=== PATIENT | male | born 2005 | race African-American/Black ===

== ENCOUNTER 2024-12-28 19:03 | Emergency (ER) | payer SELFPAY ==
--- NOTE | ~2024-12-28 | CT_ITS ---
CLINICAL HISTORY: periumbilical pain, r o acute appy CT abdomen and pelvis with contrast Comparison: None provided Findings: No consolidation or effusion. The gallbladder and solid organs are within normal limits. No renal stones. No bowel obstruction, pneumoperitoneum, or pneumatosis. Pelvic contents unremarkable. Normal appendix. Bladder is decompressed. No acute fracture. IMPRESSION: No acute findings. Specifically, the appendix is unremarkable. This document has been electronically signed by: Cody Burnette DO on 12/28/2024 22:16:48
[2024-12-28 19:09] VITALS: BP 140/80; PULSE 69; RESP 18; TEMP 36.9; O2SAT 98; BMI 34.5
--- NOTE | 2024-12-28 19:09 | ED.ABDPAIN ---
HPI - Abdominal Pain General Chief Complaint: Abdominal Pain Stated Complaint: abd pain, headache vomiting Time Seen by Provider: 12/28/24 20:55 Source: patient and family Mode of arrival: ambulatory Limitations: no limitations History of Present Illness ED Provider: DR. Garay HPI narrative: 19-year-old male came in for evaluation of mid abdominal pain since yesterday pain has been constant wax and wane since it started last night, pain is associated with nausea, few episode of vomiting since yesterday, and 1 time nonbloody watery diarrhea, no fever, no chills, no sick contacts, no recent travel, no recent use of antibiotic, no exposure to bad food. No blood in the stool or in the vomit. Never had intra-abdominal surgery in the past, a passing flatus normally. Complains of headache since yesterday. Related Data Allergies Allergy/AdvReac Type Severity Reaction Status Date / Time No Known Allergies Allergy Verified 12/28/24 19:11 Review of Systems Review of Systems All other systems are reviewed and are negative Constitutional: Reports as per HPI and Reports no additional constitutional complaints Eyes: Reports as per HPI and Reports no additional eye complaints Reports system reviewed and no additional complaints, except as documented Cardiovascular: Reports as per HPI and Reports no additional cardiovascular complaints Respiratory: Reports as per HPI and Reports no additional respiratory complaints Gastrointestinal: Reports as per HPI and Reports no additional gastrointestinal complaints Genitourinary: Reports no additional female genitourinary complaints Musculoskeletal: Reports no additional musculoskeletal complaints Skin/Breast: Reports system reviewed and no additional complaints, except as docu Psychiatric: Reports no additional psychiatric complaints Endocrine: Reports no additional endocrine complaints Hematologic/Lymphatic: Reports no additional hematologic/lymphatic complaints Allergic/Immunologic: Reports no additional allergic/immunologic complaints Reports system reviewed and no additional complaints, except as documented and Reports Abnormal speech present [facility] Social History Social History Smoked in Last 30 Days: No Use of substances other than those prescribed or required for medical reasons: Unknown Advance Directives: No Advance Directives Information Provided: Yes Physical Exam ED Vital Signs: Vital Signs - 24 hr 12/28/24 19:09 Temperature 98.5 F Pulse Rate 69 Respiratory Rate 18 Blood Pressure 140/80 H Pulse Oximetry 98 Oxygen Delivery Method Room Air BMI result Body Mass Index 34.5 Vital signs have been reviewed and appear to be correct. Blood pressure elevated. Heart rate normal. Respiratory rate normal. Temperature normal. Oxygen saturation normal. Appearance: Alert. Oriented X3. No acute distress. Head: Normal external exam. Normocephalic. Atraumatic. No Worthington signs noted. No raccoon eyes noted Eyes: PERRLA. EOMI. Conjunctiva and sclera normal. Eyelids normal. ENT: TM's Normal. Pharynx normal. Uvula midline. Moist mucous membranes. No trismus noted. No drooling noted. No muffled voice noted. Neck: Normal inspection. Neck supple. FROM. No adenopathy. Thyroid Normal. No meningeal signs. No neck mass noted. CVS: Normal heart rate and rhythm. Heart sound normal. No murmurs noted. Pulses normal throughout. Respiratory: No respiratory distress. Painless inspiration. Breath sounds normal. No wheezes/rales/rhonchi noted. Chest nontender. No accessory muscle usage noted or decreased air movement noted. Abdomen: Soft, mild periumbilical tenderness, no tenderness, no guarding. Bowel sounds normal in all 4 quadrants. No distention noted. No organomegaly noted. No visible injury noted. Back: No CVA tenderness. Full range of motion noted. Skin: Skin warm and dry. Normal skin color. Normal skin turgor. No rashes/lesions/lacerations noted. Extremities: No lower extremity edema. Extremities exhibit normal range of motion. Extremities nontender. Neuro: Oriented X 3. Cranial nerve exam: II-XII are grossly intact No motor deficit. No sensory deficit. Reflexes normal. Course Course Course Narrative: This is an RME performed by Ben Mckeon CNP: Additional HPI, ROS, PE not included below will be deferred to primary provider. Patient is a 19 year old male who presents emergency department for evaluation, symptom onset last night of headache, intermittent epigastric abdominal pain, nausea, few episodes of vomiting Plan: Serum labs, viral serologies Reevaluation(s) Reevaluation #1: Patient feels better, able to tolerate p.o. intake, less hitting after ibuprofen, CT abdomen pelvis shows no acute intra-abdominal pathology in particular no acute appendicitis, patient is likely presenting with gastroenteritis. Will reassure, instruct with clear diet for the next couple days advanced as tolerated, and follow-up with PCP. Time: 22:55 Medical Decision Making Differential Diagnosis Differential Diagnoses: The differential diagnosis associated with the presentation includes (Gastroenteritis, gastritis, food poisoning, acute appendicitis, colitis, diverticulitis, electrolyte derangement, dehydration, severe anemia.) Admission/Observation Consideration of admission/observation: Escalation of care including admission/observation considered Lab Data MDM Lab Attestation statement: I reviewed the patient's lab results. 12/28/24 19:38 12/28/24 19:38 Labs: Lab Results 12/28/24 Range/Units 19:38 WBC 8.0 (4.8-10.8) X10*3/uL RBC 5.67 (4.60-5.80) X10*6/uL Hgb 15.2 (14.0-18.0) g/dl Hct 45.8 (42.0-52.0) % MCV 80.8 (80.0-98.0) fL MCH 26.8 L (27.0-33.0) pg MCHC 33.2 (31.0-36.0) g/dl RDW 14.2 (11.0-16.0) % Plt Count 274 (160-400) X10*3/uL MPV 9.9 (9.4-12.4) fL Immature Gran % (Auto) 0.4 (0.0-0.4) % Neut % (Auto) 69.0 (45-73) % Lymph % (Auto) 20.6 (20-40) % [place] % (Auto) 9.3 (2-11) % Eos % (Auto) 0.3 (0-4) % Baso % (Auto) 0.4 (0-2) % Lymph # (Auto) 1.6 (1.2-4.9) X10*3/uL [place] # (Auto) 0.7 (0.1-1.2) X10*3/uL Eos # (Auto) 0.0 (0.0-0.4) X10*3/uL Baso # (Auto) 0.0 (0.0-0.2) X10*3/uL Abs Immat Gran (auto) 0.03 (0.00-0.03) X10*3/uL Absolute Neuts (auto) 5.5 (2.0-8.3) x10*3/uL Absolute Nucleated RBC 0.000 (0.0-0.012) X10*3/uL Nucleated RBC % (auto) 0.0 (0.0-0.2) /100WBC Sodium 142 (135-145) mmol/L Potassium 4.2 (3.3-5.1) mmol/L Chloride 105 (96-108) mmol/L Carbon Dioxide 27 (22-29) mmol/L Anion Gap 14 (12-20) BUN 11 (9-16) mg/dL Creatinine 0.97 (0.5-1.4) mg/dL Estim Creat Clear Calc 135.5 Estimated GFR > 60 Random Glucose 91 (60-115) mg/dL Calcium 10.1 (8.4-10.2) mg/dL Total Bilirubin 0.6 (0.0-1.0) mg/dL AST 27 (5-37) U/L ALT 22 (0-40) U/L Alkaline Phosphatase 99 (39-117) U/L Total Protein 8.2 H (6.5-8.0) g/dL Albumin 5.2 H (3.5-5.0) g/dL Lipase 13 (8-78) U/L Influenza Type A (PCR) NEGATIVE (Negative) Influenza Type B (PCR) NEGATIVE (Negative) RSV RNA Qual (PCR) NEGATIVE (Negative) SARS-CoV-2 RNA (RT-PCR) NEGATIVE (Negative) Independent Interpretation I performed an independent interpretation of an: CT Scan (Abdomen pelvis:No acute findings. Specifically, the appendix is unremarkable.) Radiology Impression Discussion of test interpretation with radiology: I have reviewed the radiologist's reading. Medications Administered Discontinued Medications Generic Name Dose Route Start Last Admin Trade Name Freq PRN Reason Stop Dose Admin Lactated Ringer's 1,000 mls @ 999 mls/hr 12/28/24 21:30 12/28/24 21:36 Lr IV 12/28/24 22:30 999 mls/hr .Q1H1M KIT Administration Iohexol 85 ml 12/28/24 21:28 12/28/24 21:29 Iohexol 350 Mg/Ml 100 Ml Infus..Btl IV 12/28/24 21:29 85 ml ONCE ONE Administration Ketorolac Tromethamine 15 mg 12/28/24 21:18 12/28/24 21:33 Ketorolac Tromethamine 15 Mg/Ml Vial IV 12/28/24 21:19 15 mg ONCE ONE Administration Discharge Plan Discharge Clinical Impression: Gastroenteritis Patient Disposition: Home, Self-Care Instructions: Gastroenteritis (ED) Referrals: [facility] [Primary Care Provider, Medical] Stand Alone Forms: Work/School Release Print Language: Sierra Leonean
[2024-12-28 19:43] LABS: Hematocrit 45.8 % (42.0-52.0); Hemoglobin 15.2 g/dl (14.0-18.0); Imm Gran Abs Auto 0.03 X10*3/uL (0.00-0.03); Imm Gran Pct Auto 0.4 % (0.0-0.4); Lymphocytes Absolute Auto 1.6 X10*3/uL (1.2-4.9); MANUAL DIFF FLAG NO; Mean Corpuscular HGB Conc 33.2 g/dl (31.0-36.0); Mean Corpuscular Hemoglobin 26.8 pg (27.0-33.0); Mean Corpuscular Volume 80.8 fL (80.0-98.0); NRBC Abs Auto 0.000 X10*3/uL (0.0-0.012); NRBC Pct Auto 0.0 /100WBC (0.0-0.2); Platelet Count 274 X10*3/uL (160-400); Red Blood Count 5.67 X10*6/uL (4.60-5.80); White Blood Count 8.0 X10*3/uL (4.8-10.8)
[2024-12-28 20:04] LABS: Alanine Aminotransferase 22 U/L (0-40); Albumin Level 5.2 g/dL (3.5-5.0); Alkaline Phosphatase 99 U/L (39-117); Anion Gap 14 (12-20); Aspartate Amino Transferase 27 U/L (5-37); Blood Urea Nitrogen 11 mg/dL (9-16); Calcium 10.1 mg/dL (8.4-10.2); Carbon Dioxide 27 mmol/L (22-29); Chloride 105 mmol/L (96-108); Creatinine Clr Calc Pharmacy 135.5; Estimated Glomerular Filt Rate > 60; Lipase 13 U/L (8-78); Potassium 4.2 mmol/L (3.3-5.1); Sodium 142 mmol/L (135-145); Total Protein 8.2 g/dL (6.5-8.0)
[2024-12-28 20:20] LABS: Resp Syncy Virus RNA Qual PCR NEGATIVE (Negative); SARS COV2 PCR INHOUSE NEGATIVE (Negative)
--- NOTE | 2024-12-28 21:26 | PC.NURSE ---
IV established, pt off to CT. Plan to be medicated upon return.
[2024-12-28] MEDS: iohexoL 350 MG/ML 100 ML INFUS..BTL 85 ML IV (21:29)
[2024-12-28] MEDS: Lactated Ringers 1,000 ML 999 ML IV (21:36)
--- NOTE | 2024-12-28 22:40 | PC.NURSE ---
IVF fluids still runnning.
[2024-12-28 23:13] VITALS: BP 133/76; PULSE 63; RESP 16; TEMP -17.7; TEMP 0; O2SAT 98
== END 2024-12-28 23:14 | disposition home or self-care (01) ==
PROVIDERS: Nurse Practitioner Family; Emergency Provider Emergency Medicine
DX: K52.9 Noninfective gastroenteritis and colitis, unspecified (principal); Z03.818 Encounter for observation for suspected exposure to other biological agents ruled out; R10.9 Unspecified abdominal pain
CPT/HCPCS: 74177; 80053; 83690; 85025; 87637; 96361; 96374; 99284; J1885; J7120; Q9967

== ENCOUNTER → 2024-12-28 21:18 | Outpatient (BNV) | payer SELFPAY | PROVIDERS: Emergency Provider Emergency Medicine; Visit Provider Family Medicine | DX: R10.33 Periumbilical pain (principal) | CPT/HCPCS: 74177 ==

== ENCOUNTER 2025-01-25 22:32 | Emergency (ER) | payer SELFPAY ==
--- NOTE | ~2025-01-25 | XR_ITS ---
CLINICAL HISTORY: cp 2 view chest x-ray Comparison: None provided Findings: The lungs are clear. Heart size is normal. No acute fracture. IMPRESSION: 1. No acute findings. This document has been electronically signed by: Ortiz Lepe MD on 01/25/2025 23:50:31
[2025-01-25 22:44] VITALS: BP 135/65; PULSE 54; RESP 18; TEMP 36.8; O2SAT 96; BMI 32.8
[2025-01-25 22:59] LABS: MANUAL DIFF FLAG NO
[2025-01-25 23:00] LABS: Hematocrit 45.5 % (42.0-52.0); Hemoglobin 14.7 g/dl (14.0-18.0); Imm Gran Abs Auto 0.03 X10*3/uL (0.00-0.03); Imm Gran Pct Auto 0.4 % (0.0-0.4); Lymphocytes Absolute Auto 2.3 X10*3/uL (1.2-4.9); Mean Corpuscular HGB Conc 32.3 g/dl (31.0-36.0); Mean Corpuscular Hemoglobin 26.4 pg (27.0-33.0); Mean Corpuscular Volume 81.7 fL (80.0-98.0); NRBC Abs Auto 0.000 X10*3/uL (0.0-0.012); NRBC Pct Auto 0.0 /100WBC (0.0-0.2); Platelet Count 272 X10*3/uL (160-400); Red Blood Count 5.57 X10*6/uL (4.60-5.80); White Blood Count 8.0 X10*3/uL (4.8-10.8)
[2025-01-25 23:14] LABS: Alanine Aminotransferase 23 U/L (0-40); Albumin Level 4.6 g/dL (3.5-5.0); Alkaline Phosphatase 80 U/L (39-117); Anion Gap 12 (12-20); Aspartate Amino Transferase 22 U/L (5-37); Blood Urea Nitrogen 11 mg/dL (9-16); Calcium 9.4 mg/dL (8.4-10.2); Carbon Dioxide 27 mmol/L (22-29); Chloride 107 mmol/L (96-108); Creatinine Clr Calc Pharmacy 125.8; Estimated Glomerular Filt Rate > 60; Potassium 3.8 mmol/L (3.3-5.1); Sodium 142 mmol/L (135-145); Total Protein 7.0 g/dL (6.5-8.0)
[2025-01-25 23:33] LABS: Troponin-I High Sensitivity < 2.7 ng/L (<3.5-35.0)
[2025-01-25 23:35] VITALS: PULSE 63; PULSE 64; RESP 14
--- OUTSIDE RECORDS SUMMARY | 2025-01-25 23:35 | XMS_ITS | Clinical Summary ---
Author Organization [employer] Address [address] [place] [address] [address] [place] [address] Care Team Providers Care Cage Loader Name Role Phone Unavailable Primary Care Provider Unavailabl e Social History Tobacco Use Types Packs/Day Years Used Date Smoking Tobacco: Never Assessed Sex and Gender Information Value Date Recorded Sex Assigned at Male 03/27/2022 10:22 AM EDT Legal Sex Male 10:22 AM EDT Gender Identity Choose not to disclose 10:22 AM EDT Sexual Orientation Choose not to disclose 2021 10:22 AM EDT Last Filed Vital Signs Vital Sign Reading Time Taken Comments Blood Pressure 126/88 07/04/2019 12:02 AM EST Pulse 84 07/04/2019 12:02 AM EST Temperature - - Respiratory Rate - - Oxygen Saturation - - Inhaled Oxygen Concentration - - Weight 84.6 kg (186 lb 9.6 oz) 07/04/2019 12:02 AM EST Height 160.7 cm (5' 3.25 ) 07/04/2019 12:[address] Body Mass Index 32.79 07/04/2019 12:02 AM EST Plan of Treatment Health Maintenance Due Date Last Done Comments Chlamydia and Gonorrhea Screening 2003 Depression Screening 2003 Disability Screening 2003 Alcohol/Substance Use Screening 2015 Tobacco Screening 2015 Family Planning (PISQ) 12/03/2018 Meningococcal B Vaccine (1 of 2 - Standard) 2019 COVID-19 Vaccine (1 - season) 2024 Influenza Vaccine (#1) 2025 DTaP/Tdap/Td Vaccines (6 - Td or Tdap) 08/31/2025 09/01/2015, 01/21/2008, 07/04/2006, Additional history exists Zoster Vaccines (1 of 2) 12/03/2053 RSV Patients and Patients Aged 60 years or older (1 - 1-dose 75+ series) 12/03/2078 Hepatitis B Vaccines Completed 08/04/2004, 02/04/2004, 2003 HIB Vaccines Completed 07/04/2006, 07/26, 02/05/2004 Pneumococcal Vaccine: Pediatrics (0 to 5 Years) and At-Risk Patients (6 to 49) Years Aged Out 07/04/2006, 02/05/2004 No longer eligibl e based on patient's age to complete this topic IPV Vaccines Completed 01/21/2008, 11/2006, 08/04/2004, Additional history exists Meningococcal Vaccine Aged Out 09/01/2015 No keith tristian eligible based on patient's age to complete this topic HPV Vaccines Completed 09/25/2016, 11/2015, 09/01/2015 Hepatitis A Vaccines Completed 09/25/2016, 09/01/19 16 RSV under 20 months Aged Out No longe r eligible based on patient's age to complete this topic Rotavirus Vaccines Aged Out No longer eligible based on patient's age to complete this topic
--- NOTE | 2025-01-26 02:25 | ED_ITS ---
HPI - Chest Pain General Chief Complaint: Chest Pain Stated Complaint: CP Time Seen by Provider: 01/26/25 02:18 Source: patient Limitations: no limitations History of Present Illness ED Provider: Nabila Higgins PA-C HPI narrative: 19-year-old male presents with substernal chest discomfort. Patient states he woke with mid to substernal chest discomfort. Pain described as a pressure. His symptoms went away then returned. Patient states he has been having excessive eructation throughout the day. Denies focal epigastric pain, nausea vomiting. Denies recent cough or cold symptoms. Denies new heavy lifting, repetitive activity or trauma that could account for his central chest discomfort. No recent fever. Related Data Previous Rx's ?Medication ?Instructions ?Recorded sucralfate 100 mg/mL oral 10 ml PO QID PRN indigestion #300 01/26/25 suspension (Carafate) mL Allergies Allergy/AdvReac Type Severity Reaction Status Date / Time No Known Allergies Allergy Verified 01/25/25 22:47 Review of Systems 2 Review of Systems: Yes all other systems are reviewed and are negative Constitutional: Constitutional: Denies fatigue and Denies fever(s) Cardiovascular: Cardiovascular: Reports chest pain and Denies dyspnea Respiratory: Respiratory: Denies cough and Denies dyspnea Gastrointestinal: Gastrointestinal: Denies abdominal pain, Reports dyspepsia, Denies nausea and Denies vomiting Endocrine: Endocrine: Denies fatigue PMFSH Past Medical History Attestation statement: The following information was validated with the patient. Social History Social History Smoked in Last 30 Days: No Use of substances other than those prescribed or required for medical reasons: No Advance Directives: No Advance Directives Information Provided: Yes Physical Exam 2 Vital Signs: Vital Signs: Last Vital Signs Temp 98 F 01/26/25 02:39 Pulse 63 01/26/25 02:39 Resp 14 01/26/25 02:39 BP 130/81 01/26/25 02:39 Pulse Ox 98 01/26/25 02:39 O2 Del Method Room Air 01/26/25 02:39 BMI result Body Mass Index 32.8 Const: Other: Alert well-appearing Orientation/consciousness: patient oriented x3 Resp: Effort & Inspection: normal respiratory effort Cardio: Other: Normal peripheral perfusion Skin: Other: Warm dry no rash Neuro: General: patient oriented x3, gait normal, no focal motor deficits and CN's II-XI intact bilaterally Psych: Other: Cooperative Medications Administered Discontinued Medications Generic Name Dose Route Start Last Admin Trade Name Kala PRN Reason Stop Dose Admin Sucralfate 1 gm 01/26/25 02:22 01/26/25 02:31 Sucralfate Oral Suspension 1 Gm/10 Ml Oral.Susp PO 01/26/25 02:23 1 gm ONCE ONE Administration Medical Decision Making Medical Decision Making [facility] Narrative: 19-year-old male presents with substernal chest discomfort. Patient states he woke with mid to substernal chest discomfort. Pain described as a pressure. His symptoms went away then returned. Patient states he has been having excessive eructation throughout the day. Denies focal epigastric pain, nausea vomiting. Denies recent cough or cold symptoms. Denies new heavy lifting, repetitive activity or trauma that could account for his central chest discomfort. No recent fever. No chronic issues History: Per patient I have considered the following differential diagnoses: ACS, chest wall strain, GERD, costochondritis, pneumonia , viral syndrome Plan: ACS was considered, however the patient has no risk factors for coronary artery disease, his heart score is 0. Given his excessive eructation throughout the day, and distribution of discomfort, this is likely poorly controlled acid reflux. We will send with Carafate. He has no infectious signs symptoms, to suggest viral syndrome versus pneumonia, with subsequent costochondritis. Screening labs including cardiac enzymes and chest x-ray were obtained from triage. I have independently reviewed the following tests: Labs: No leukocytosis, not anemic, no electrolyte abnormality, troponin less than 2.7 Chest x-ray:Findings: The lungs are clear. Heart size is normal. No acute fracture. IMPRESSION: 1. No acute findings. Differential Diagnosis Differential Diagnoses: The differential diagnosis associated with the presentation includes See medical decision-making Admission/Observation Consideration of admission/observation: Escalation of care including admission/observation considered Not applicable Lab Data [facility] Lab Attestation statement: I reviewed the patient's lab results. 01/25/25 22:54 01/25/25 22:54 Labs: Lab Results 01/25/25 Range/Units 22:54 WBC 8.0 (4.8-10.8) X10*3/uL RBC 5.57 (4.60-5.80) X10*6/uL Hgb 14.7 (14.0-18.0) g/dl Hct 45.5 (42.0-52.0) % MCV 81.7 (80.0-98.0) fL MCH 26.4 L (27.0-33.0) pg MCHC 32.3 (31.0-36.0) g/dl RDW 14.0 (11.0-16.0) % Plt Count 272 (160-400) X10*3/uL MPV 10.3 (9.4-12.4) fL Immature Gran % (Auto) 0.4 (0.0-0.4) % Neut % (Auto) 59.7 (45-73) % Lymph % (Auto) 29.1 (20-40) % [place] % (Auto) 9.5 (2-11) % Eos % (Auto) 0.9 (0-4) % Baso % (Auto) 0.4 (0-2) % Lymph # (Auto) 2.3 (1.2-4.9) X10*3/uL [place] # (Auto) 0.8 (0.1-1.2) X10*3/uL Eos # (Auto) 0.1 (0.0-0.4) X10*3/uL Baso # (Auto) 0.0 (0.0-0.2) X10*3/uL Abs Immat Gran (auto) 0.03 (0.00-0.03) X10*3/uL Absolute Neuts (auto) 4.8 (2.0-8.3) x10*3/uL Absolute Nucleated RBC 0.000 (0.0-0.012) X10*3/uL Nucleated RBC % (auto) 0.0 (0.0-0.2) /100WBC Sodium 142 (135-145) mmol/L Potassium 3.8 (3.3-5.1) mmol/L Chloride 107 (96-108) mmol/L Carbon Dioxide 27 (22-29) mmol/L Anion Gap 12 (12-20) BUN 11 (9-16) mg/dL Creatinine 1.02 (0.5-1.4) mg/dL Estim Creat Clear Calc 125.8 Estimated GFR > 60 Random Glucose 95 (60-115) mg/dL Calcium 9.4 D (8.4-10.2) mg/dL Total Bilirubin 0.7 (0.0-1.0) mg/dL AST 22 (5-37) U/L ALT 23 (0-40) U/L Alkaline Phosphatase 80 (39-117) U/L Troponin I High Sens < 2.7 (<3.5-35.0) ng/L Total Protein 7.0 (6.5-8.0) g/dL Albumin 4.6 (3.5-5.0) g/dL Radiology Impression Discussion of test interpretation with radiology: I have reviewed the radiologist's reading. Discharge Plan Discharge Clinical Impression: Indigestion Patient Disposition: Home, Self-Care Instructions: Indigestion (ED) Additional Instructions: All of your screening labs were normal including a cardiac enzyme. There were no concerning changes on the EKG in the chest x-ray is clear. Your symptoms are most consistent with indigestion. See home care instructions. There are numerous dietary triggers including spicy food, acidic food, fatty food, carbonation, alcohol, caffeine. Do not eat 3 hours before bed. Eating smaller meals throughout the day we will help to deter symptoms. Use the Carafate as needed for central chest and upper abdominal discomfort. Follow up with your primary care provider as needed. Prescriptions: New sucralfate [Carafate] 100 mg/mL suspension 10 ml PO QID PRN (Reason: indigestion) Qty: 300 0RF Rx Instructions: swish in mouth and swallow; use after food/drink Stand Alone Forms: Work/School Release Interventions: ED Discharge Assessment Last Done: 01/26/25 02:39 Discharge Date/Time: 01/26/25 02:39 Print Language: Albanian
[2025-01-26] MEDS: Sucralfate Oral Suspension 1 GM/10 ML ORAL.SUSP PO (02:31)
[2025-01-26 02:39] VITALS: BP 130/81; PULSE 63; RESP 14; TEMP 36.6; O2SAT 98
== END 2025-01-26 02:39 | disposition home or self-care (01) ==
PROVIDERS: Emergency Provider Emergency Medicine
DX: K30 Functional dyspepsia (principal)
CPT/HCPCS: 36415; 71046; 80053; 84484; 85025; 99283; 99285

== ENCOUNTER → 2025-01-25 23:00 | Outpatient (BNV) | payer SELFPAY | PROVIDERS: Visit Provider Student in an Organized Health Care Education/Training Program | DX: R07.9 Chest pain, unspecified (principal) | CPT/HCPCS: 71046 ==

== ENCOUNTER 2025-02-09 23:05 | Emergency (ER) | payer OTHER, SELFPAY ==
[2025-02-09 23:10] VITALS: BP 102/57; PULSE 70; RESP 20; TEMP 36.2; O2SAT 98; BMI 33.7
--- OUTSIDE RECORDS SUMMARY | 2025-02-10 00:41 | XMS_ITS | Clinical Summary ---
Author Organization [employer] Address [address] [place] [address] [address] [place] [address] Care Team Providers Care Bead Maker Name Role Phone Unavailable Primary Care Provider [...] Standard) 2019 COVID-19 Vaccine (1 - season) 2025 Influenza Vaccine (#1) 2025 DTaP/Tdap/Td Vaccines (6 [...]
== END 2025-02-10 00:43 | disposition left against medical advice (07) ==
LOC: HO.ED 02-10 00:37
PROVIDERS: Emergency Provider Emergency Medicine
DX: M54.9 Dorsalgia, unspecified (principal); Z53.21 Procedure and treatment not carried out due to patient leaving prior to being seen by health care provider
CPT/HCPCS: 99281

== ENCOUNTER 2025-04-13 01:01 | Emergency (ER) | payer OTHER, SELFPAY ==
[2025-04-13 01:05] VITALS: BP 119/58; PULSE 70; RESP 18; TEMP 36.6; O2SAT 96; BMI 31.8
[2025-04-13 01:21] LABS: Appearance Urine Clear; Glucose Urine UA Negative (Negative); PH 5.5 (5.0-9.0); Specific Gravity - Urine 1.020 (1.005-1.025)
--- OUTSIDE RECORDS SUMMARY | 2025-04-13 01:23 | XMS_ITS | Clinical Summary ---
Author Organization [employer] Address [address] [place] [address] [address] [place] [address] Care Team Providers Care Full Service Supervisor Name Role Phone Unavailable Primary Care Provider [...] - Standard) 2019 COVID-19 Vaccine (1 - 2024- season) 2025 Influenza Vaccine (#1) 2025 DTaP/Tdap/Td [...]
--- NOTE | 2025-04-13 01:49 | ED_ITS ---
HPI - Male Genitourinary General Chief complaint: Urogenital-Male Stated complaint: Urinary Symptoms Time Seen by Provider: 04/13/25 01:28 History of Present Illness ED Provider: vince HPI Narrative: 19 M with dysuria, no abdominal or flank pain no prior STI or urologic issues including no kidney stones sexually active with female partner who is at the bedside here no pyuria no scrotal or testicular pain Related Data Previous Rx's ?Medication ?Instructions ?Recorded sucralfate 100 mg/mL oral 10 ml PO QID PRN indigestion #300 01/26/25 suspension (Carafate) mL Allergies Allergy/AdvReac Type Severity Reaction Status Date / Time No Known Allergies Allergy Verified 04/13/25 01:07 [facility] Social History Social History Advance Directives: No Advance Directives Information Provided: No Physical Exam Exam: Exam: GENERAL: Well appearing. No apparent distress. Alert. HEAD/NECK: No visual trauma. EYES: Normal to inspection. No conjunctival erythema. No discharge. ENMT: Hearing grossly normal. External nose normal. RESPIRATORY: Respiratory effort normal. CARDIOVASCULAR: Additional details (Grossly well perfused). SKIN: No jaundice. NEUROLOGICAL: Alert. Moving all extremities x4. Additional details (No gross motor deficits. Normal tone. ). PSYCHIATRIC: Alert. Appearance appropriate for situation. Patient wasoffered but declined exam Vital Signs: Vital Signs: Last Vital Signs Temp 97.8 F 04/13/25 02:49 Pulse 61 04/13/25 02:49 Resp 18 04/13/25 02:49 BP 110/57 L 04/13/25 02:49 Pulse Ox 98 04/13/25 02:49 O2 Del Method Room Air 04/13/25 02:49 BMI result Body Mass Index 31.8 Medical Decision Making Medical Decision Making MDM Narrative: Medical Decision Makin-year-old male with isolated dysuria. Offered but he deferred and examination does not sound like he has any scrotal or testicular pain to suggest orchitis he has no lesions on the penis per his description. We will test for GC and chlamydia counseled him on Partnership discussion Preliminary Favored Differential Diagnosis: STI, UTI among additional considered etiologies Testing Interpreted Independently: See below for details Radiology or Lab testing Results Reviewed: See below for details Consults: See below for details Independent Historians/External Chart Reviews: See below for details Social Determinants of Health Impacting MDM/Planning: See below for details Lab Data Labs: Lab Results 04/13/25 04/13/25 Range/Units 01:14 02:37 Urine Color Yellow Urine Appearance Clear Urine pH 5.5 (5.0-9.0) Ur Specific [place] 1.020 (1.005-1.025) Urine Protein Negative (Neg-Trace) mg/dL Urine Glucose (UA) Negative (Negative) mg/dL Urine Ketones Negative (Negative) mg/dL Urine Blood Negative (Negative) Urine Nitrite Negative (Negative) Ur Leukocyte Esterase Negative (Negative) Urine RBC 0-2 (0-2) /HPF Urine WBC 0-5 (0-5) /HPF Ur Squamous Epith Cells 0-2 (0-2) /HPF Urine Bacteria None Seen (None Seen) Hyaline Casts 0-2 (0-2) /LPF Ur N gonorrhoeae DNA (PCR) NOT DETECTED (Not Detect.) Ur Chlamydia DNA (PCR) DETECTED A (Not Detect.) Discharge Plan Discharge Clinical Impression: Dysuria Patient Disposition: Home, Self-Care Instructions: Dysuria (ED) Additional Instructions: You were evaluated for burning with urination. You had a urinalysis which did not show any sign of infection or bleeding in the urine . As we discussed we sent additional testing to check for chlamydia and gonorrhea which can sometimes cause these symptoms but we will not receive the result back tonight. You will be contacted if this test is positive by phone at the number you left with the registration folks. Drink plenty of water. Prescriptions: No Action sucralfate [Carafate] 100 mg/mL suspension 10 ml PO QID PRN (Reason: indigestion) Qty: 300 0RF Rx Instructions: swish in mouth and swallow; use after food/drink Interventions: ED Discharge Assessment Last Done: 04/13/25 02:49 Discharge Date/Time: 04/13/25 02:49 Print Language: Vietnamese
[2025-04-13 02:48] VITALS: BP 110/57; PULSE 61; RESP 18; TEMP 36.6; O2SAT 98
[2025-04-13 02:49] VITALS: BP 110/57; PULSE 61; RESP 18; TEMP 36.6; O2SAT 98
[2025-04-13 10:36] LABS: CT PCR Urine DETECTED (Not Detect.); NG PCR Urine NOT DETECTED (Not Detect.)
== END 2025-04-13 02:49 | disposition home or self-care (01) ==
PROVIDERS: Emergency Provider Emergency Medicine
DX: R30.0 Dysuria (principal); A56.8 Sexually transmitted chlamydial infection of other sites
CPT/HCPCS: 81001; 87491; 87591; 99283